=== PATIENT | female | born 1965 | race Caucasian/White ===

== ENCOUNTER 2019-03-15 18:39 | Emergency (ER) | payer SELFPAY ==
[2019-03-15 19:30] VITALS: BP 129/87; PULSE 111; RESP 18; TEMP 37.1; O2SAT 99; BMI 42.5
[2019-03-15 20:06] VITALS: BP 132/74; PULSE 84; RESP 16; TEMP 36.7; O2SAT 98
--- NOTE | 2019-03-15 20:27 | ED_ITS ---
Entered by Abena Springer, acting as scribe for Bonnie Branch MD, [facility] [place], 2019 18:39 HPI - General Adult General: Chief complaint: General Medical Stated complaint: peg tube issue Time Seen by Provider: 03/15/19 20:27 Source: patient Mode of arrival: wheelchair Limitations: no limitations History of Present Illness: HPI narrative: 53 yo Female presents to ED with complaint of feeding tube issues. Pt states that she has been in and out of the hospital since December because she has a stricture in her stomach. 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 Pt states that they put in a feeding tube the last time and this tube was put in at the hospital in [place], [place]. Pt states that she hasn't fed herself through the tube since this afternoon because it is leaking and getting everywhere. The PEG tube was placed 14 days ago. She was discharged from the hospital 2 days ago. The patient is traveling and will be going back to [place] tomorrow. complaint: Feeding tube issues Onset (ago): hour(s) Location: abdomen Radiation: non-radiation Severity scale (1-10): 9 Pain Consistency: constant Relieving factors: none Exacerbating factors: none Associated symptoms: Reports nausea; Deny chest pain, dyspnea, headache(s), rash, palpitations or vomiting Review of Systems General: Reports: 10 or more systems reviewed and unremarkable except in HPI and below Const: Denies: fever, chills or body aches Eyes: Denies: change in vision, blurry vision or blind spots ENMT: Denies: throat pain, enlarged tonsils, painful swallowing, hoarseness, mouth pain or swelling of lips/tongue Card: Denies: chest pain, palpitations, irregular heart rhythm, edema or swelling of feet/ankles Resp: Denies: shortness of breath, productive cough or non-productive cough GI: Reports: abdominal pain, nausea, diarrhea and other (feeding tube leakage); Denies: vomiting : Denies: flank pain, difficulty urinating, painful urination, urinary fr equency, urinary urgency or urinary hesitancy Musc: Denies: neck pain, back pain, extremity pain, extremity swelling or joint pain Skin/Breast: Denies: rash, itching or redness Neuro: Denies: headache, numbness in extremities or weakness in extremities Endo: Denies: excessive urination, excessive thirst or tired all the time PFSH ED 2 PFSH: Statuses (acute, chronic, etc) shown below reflect problem list status as previously entered and may not be historically accurate Social History Smoking and tobacco status: never smoked Physical Exam Const: COMMON NORMALS: no apparent distress, average body habitus, oriented x3, no limitations, healthy appearing, alert and well nourished HENMT: COMMON NORMALS: normocephalic, head/scalp atraumatic and moist oral mucous membranes HEAD & SCALP: normocephalic and atraumatic Eye: COMMON NORMALS: PERRL, EOMs intact bilaterally, conjunctivae normal and no scleral icterus CONJUNCTIVA: Yes conjunctivae normal PUPIL: Yes PERRL Neck/C-Spine: COMMON NORMALS: full ROM, supple, no meningeal signs, no JVD and no carotid bruits Chest: COMMONS NORMALS: inspection of chest normal and palpation of chest normal Resp: COMMON NORMALS: normal respiratory effort, no retractions, no use of accessory muscles, clear to auscultation bilaterally and percussion normal AUSCULTATION: clear to auscultation bilaterally PERCUSSION: percussion normal Cardio: COMMON NORMALS: no JVD, regular rate, regular rhythm, S1 normal heart sound, S2 normal heart sound, no gallops, no clicks, no murmurs, no rub and peripheral pulses 2+ throughout RATE: regular rate RHYTHM: regular rhythm HEART SOUNDS: S1 normal and S2 normal PERIPHERAL PULSES: pulses 2+ throughout GI: COMMON NORMALS: soft to palpation, no hepatosplenomegaly, no masses and no bruits PALPATION: Yes soft, Yes tender (Around the PEG tube site) and Yes no hepatosplenomegaly OTHER: PEG tube in situ. There is mild tenderness and warmth around the PEG tube site. Mild purulent drainage from the PEG tube site. : COMMON NORMALS: Yes no CVA tenderness BLADDER/KIDNEY EXAM: Yes no CVA tenderness Back/Pelvis: COMMON NORMALS: no CVA tenderness Extremity: COMMON NORMALS: normal to inspection, full ROM, normal capillary refill, no calf tenderness and no pedal edema Neuro: COMMON NORMALS: oriented x3 SENSORIUM/ORIENTATION: Yes alert MENINGEAL SIGNS: Yes no meningeal signs Skin: COMMON NORMALS: no rashes or lesions noted, no wounds, skin turgor normal, no jaundice, no petechiae and no mottling GENERAL SKIN EXAM: no rashes or lesions noted and turgor normal Course Consultations: Consultation #1: Dr. Champagne, general surgeon. Attempt to reinsert the PEG tube. If unsuccessful attempt to remove it. Have her call the office in the morning. Time: 22:45 Vital Signs: Vital signs: Vital Signs Temperature 98.4 F 03/15/19 21:30 Pulse Rate 74 03/15/19 21:30 Respiratory Rate 16 03/15/19 21:30 Blood Pressure 134/81 03/15/19 21:30 Pulse Oximetry 97 03/15/19 21:30 MDM - General Adult MDM Narrative: Medical decision making narrative: 53-year-old female patient with a longstanding gastric outlet obstruction. She says she has been dealing with this for at least a year. 2 weeks ago she had a PEG tube placed in [place] for tube feedings. Patient states that since the tube was placed she has had pain and swelling around the PEG tube site. She claims she complained to the physician who placed the PEG tube but was told that it was okay. CT scan done today shows the PEG tube is not in the stomach and she does have some cellulitis of her abdominal wall. Attempts to reinsert the PEG tube were unsuccessful and attempts to deflate and remove the PEG tube were also unsuccessful. When an attempt was made to deflate it food particles were draining into the port. A second physician attempted to deflate or reinsert the PEG tube and he was also unsuccessful. We believe the PEG tube is defective. The patient will like to be discharged as she is traveling back home tomorrow and states that she will go straight to the emergency department when she gets home. Because of the cellulitis of the abdominal wall and myositis she will be discharged home on oral antibiotics after a dose of intravenous antibiotics given here in the ED. The patient is advised to return for any concerns. Patient voiced understanding and is in agreement with the plan Lab Data: Labs: Lab Results 03/15/19 03/15/19 03/15/19 Range/Units 20:58 20:58 20:58 WBC 10.1 H (4.0-10.0) 10^3/ uL RBC 4.24 (4.1-5.3) 10^6/u L Hgb 12.1 (11.5-15.3) g/dL Hct 37.6 (37.0-47.0) % MCV 88.7 (81-99) fL MCH 28.5 (28.0-34.0) pg MCHC 32.2 (30.0-36.0) g/dL RDW 12.7 (12.1-15.1) % Plt Count 337 (130-400) 10^3/c mm MPV 9.9 (7.4-10.4) fL Neut % (Auto) 63.9 % Lymph % (Auto) 25.2 % Vilas % (Auto) 7.1 % Eos % (Auto) 3.1 % Baso % (Auto) 0.2 % Neut # (Auto) 6.5 (1.8-7.7) 10^3/u L Lymph # (Auto) 2.6 (0.8-4.8) 10^3/u L Vilas # (Auto) 0.7 (0.2-0.9) 10^3/u L Eos # (Auto) 0.3 (0.0-0.8) 10^3/u L Baso # (Auto) 0.0 (0.0-0.1) 10^3/u L Nucleated RBC % (a uto) 0 % Nucleated RBCs # 0.0 /100WBC Sodium 135 L (136-145) mmol/L Potassium 4.4 (3.5-5.1) mmol/L Chloride 99 (98-107) mmol/L Carbon Dioxide 26 (22-29) mmol/L Anion Gap 14.4 (5-19) BUN 14 (6-20) mg/dL Creatinine 0.8 (0.5-0.9) mg/dL GFR Calculation 74.5 L (90-130) mL/min Glucose 137 H (74-109) mg/dL Lactate 1.3 (0.5-2.2) mmol/L Calcium 10.4 (8.5-10.5) mg/dL Total Bilirubin 0.2 (0.15-1.2) mg/dL AST 13 (0-32) U/L ALT 14 (0-33) U/L Alkaline Phosphata se 120 H (35-105) IU/L Total Protein 7.0 (6.6-8.7) g/dL Albumin 3.8 (3.5-5.2) g/dL Globulin 3.2 (1.3-4.6) g/dL Imaging Data^: CT Abd/Pel: Radiologist's impression: [facility] [address] [place] [address] CT Scan Report Signed Patient: John Rodriguez #: [id number] : 1965Acct#:[id number] Age/Sex: 53 / FADM Date: 03/15/19 Loc: ERRoom/Bed: Attending Dr: Ordering Provider/Ordering MD: Bonnie Branch MD, [facility] [place] of Service: 03/15/19 Procedure(s): CT abdomen pelvis w con* [id number] Accession Number(s): [id number] Report Number: [id number] PROCEDURE INFORMATION: Exam: CT Abdomen And Pelvis With Contrast Exam date and time: 03/15/2019 9:56 PM Age: 53 years old Clinical indication: Abdominal tenderness; Prior surgery; Surgery type: Feeding tube, laproscopic, perforated ulcer; Additional info: Feeding tube leakage TECHNIQUE: Imaging protocol: Computed tomography of the abdomen and pelvis with intravenous contrast. Total DLP: 1977.73 mGy-cm Radiation optimization: All CT scans at this facility use at least one of these dose optimization techniques: automated exposure control; mA and/or kV adjustment per patient size (includes targeted exams where dose is matched to clinical indication); or iterative reconstruction. Contrast material: VISI 320; Contrast volume: 95 ml; Contrast route: IV; COMPARISON: No relevant prior studies available. FINDINGS: Tubes, catheters and devices: Peg tube catheter is abnormally located with retaining flange retracted out of the stomach and located the anterior abdominal wall, along the outer margin of the rectus muscle. Lungs: Mild atelectasis. Liver: Normal. No mass. Gallbladder and bile ducts: Normal. No calcified stones. No ductal dilation. Pancreas: Normal. No ductal dilation. Spleen: Normal. No splenomegaly. Adrenals: Normal. No mass. Kidneys and ureters: Normal. No hydronephrosis. Stomach and bowel: Postsurgical changes of the stomach with sutures. Appendix: No evidence of appendicitis. Intraperitoneal space: Unremarkable. No free air. No significant fluid collection. Vasculature: Infrarenal IVC filter. Lymph nodes: Unremarkable. No enlarged lymph nodes. Bladder: Unremarkable as visualized. Reproductive: Unremarkable as visualized. 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 Soft tissues: There is thickening of the left abdominus rectus muscle surrounding the PEG tube catheter. There is soft tissue edema and fat stranding with a few gas bubbles surrounding the catheter and extending along the left lateral abdominal wall. No organized fluid collection or abscess. CT/CT abdomen pelvis w con* [id number] IMPRESSION: 1. The PEG tube catheter has been pulled out of the stomach with the retaining flange located within the anterior abdominal wall. 2. Edema and cellulitis of the surrounding anterior and lateral left abdominal wall. 3. Thickening of the left abdominus rectus muscle consistent with myositis. Radiation Dose CTDIVOL = (mGy): DLP = 1977.73 (mGy-cm) Dictated By:Hany Lyons Signed By:Hany LyonsSitania Date/Time:03/15/192246 DD/ 45 Discharge Plan Discharge Patient Disposition: Home, Self-Care Clinical Impression: Malfunction of percutaneous endoscopic gastrostomy (PEG) tube, Leaking percutaneous endoscopic gastrostomy (PEG) tube, Abdominal wall cellulitis Myositis Qualifiers: Myositis type: infective Myositis location: other site Qualified Code(s): M60.08 - Infective myositis, other site Condition: Stable Prescriptions: New amoxicillin-pot clavulanate [Augmentin] 250-62.5 mg/5 mL suspension for reconstitution 10 ml PO Q8H Qty: 210 RF: 0 Discharge Orders: Discharge Order (Routine); Ordered 03/15/19 Ordered By: Bonnie Branch Patient Instructions: Cellulitis (ED), How to Use and Care for Your PEG Tube (ED) Activity Restrictions/Additional Instructions: Return for any new or worsening symptoms. Do not use your feeding tube until you are evaluated by your doctor. When you go home go straight to the emergency department to be evaluated. Take the antibiotic as prescribed. Until you are evaluated I want you to consume a liquid diet including Pedialyte, Gatorade, and similar. Coding Level of Care Code ED Vp Customer Service for Chg Fwd Exam Problem Focused The documentation recorded by the Gian knowles Carmen, accurately reflects the service I personally performed and the decisions made by me, Bonnie Branch MD, [facility] [place] Mar 15, 2019 18:39
--- NOTE | 2019-03-15 20:38 | CTR_ITS ---
PROCEDURE INFORMATION: Exam: CT Abdomen And Pelvis With Contrast Exam date and time: 03/15/2019 9:56 PM Age: 53 years old Clinical indication: Abdominal tenderness; Prior surgery; Surgery type: Feeding tube, laproscopic, perforated ulcer; Additional info: Feeding tube leakage TECHNIQUE: Imaging protocol: Computed tomography of the abdomen and pelvis with intravenous contrast. Total DLP: 1977.73 mGy-cm Radiation optimization: All CT scans at this facility use at least one of these dose optimization techniques: automated exposure control; mA and/or kV adjustment per patient size (includes targeted exams where dose is matched to clinical indication); or iterative reconstruction. Contrast material: VISI 320; Contrast volume: 95 ml; Contrast route: IV; COMPARISON: No relevant prior studies available. FINDINGS: Tubes, catheters and devices: Peg tube catheter is abnormally located with retaining flange retracted out of the stomach and located the anterior abdominal wall, along the outer margin of the rectus muscle. Lungs: Mild atelectasis. Liver: Normal. No mass. Gallbladder and bile ducts: Normal. No calcified stones. No ductal dilation. Pancreas: Normal. No ductal dilation. Spleen: Normal. No splenomegaly. Adrenals: Normal. No mass. Kidneys and ureters: Normal. No hydronephrosis. Stomach and bowel: Postsurgical changes of the stomach with sutures. Appendix: No evidence of appendicitis. Intraperitoneal space: Unremarkable. No free air. No significant fluid collection. Vasculature: Infrarenal IVC filter. Lymph nodes: Unremarkable. No enlarged lymph nodes. Bladder: Unremarkable as visualized. Reproductive: Unremarkable as visualized. 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 Soft tissues: There is thickening of the left abdominus rectus muscle surrounding the PEG tube catheter. There is soft tissue edema and fat stranding with a few gas bubbles surrounding the catheter and extending along the left lateral abdominal wall. No organized fluid collection or abscess. CT/CT abdomen pelvis w con* [id number] IMPRESSION: 1. The PEG tube catheter has been pulled out of the stomach with the retaining flange located within the anterior abdominal wall. 2. Edema and cellulitis of the surrounding anterior and lateral left abdominal wall. 3. Thickening of the left abdominus rectus muscle consistent with myositis. Radiation Dose CTDIVOL = (mGy): DLP = 1977.73 (mGy-cm)
[2019-03-15 21:14] LABS: Basophils % 0.2 %; Eosinophils # 0.3 10^3/uL (0.0-0.8); Eosinophils % 3.1 %; Hematocrit 37.6 % (37.0-47.0); Hemoglobin 12.1 g/dL (11.5-15.3); Lymphocytes # 2.6 10^3/uL (0.8-4.8); Lymphocytes % 25.2 %; Mean Corpuscular HGB Conc 32.2 g/dL (30.0-36.0); Mean Corpuscular Hemoglobin 28.5 pg (28.0-34.0); Mean Corpuscular Volume 88.7 fL (81-99); Mean Platelet Volume 9.9 fL (7.4-10.4); Monocytes # 0.7 10^3/uL (0.2-0.9); Monocytes % 7.1 %; Neutrophils # 6.5 10^3/uL (1.8-7.7); Neutrophils % 63.9 %; Nucleated Red Blood Cells % 0 %; Platelet Count 337 10^3/cmm (130-400); Red Blood Count 4.24 10^6/uL (4.1-5.3); Red Cell Distribution Width 12.7 % (12.1-15.1); White Blood Count 10.1 10^3/uL (4.0-10.0)
[2019-03-15 21:29] LABS: Lactate (Lactic Acid level) 1.3 mmol/L (0.5-2.2)
[2019-03-15 21:30] VITALS: BP 134/81; PULSE 74; RESP 16; TEMP 36.9; O2SAT 97
[2019-03-15 21:44] LABS: Alanine Aminotransferase 14 U/L (0-33); Albumin Level 3.8 g/dL (3.5-5.2); Alkaline Phosphatase 120 IU/L (35-105); Anion Gap 14.4 (5-19); Aspartate Amino Transferase 13 U/L (0-32); Blood Urea Nitrogen 14 mg/dL (6-20); Calcium 10.4 mg/dL (8.5-10.5); Carbon Dioxide 26 mmol/L (22-29); Chloride 99 mmol/L (98-107); Globulin 3.2 g/dL (1.3-4.6); Glomerular Filtration Rate 74.5 mL/min (90-130); Glucose 137 mg/dL (74-109); Potassium 4.4 mmol/L (3.5-5.1); Sodium 135 mmol/L (136-145); Total Bilirubin 0.2 mg/dL (0.15-1.2)
[2019-03-15] MEDS: iodixanol 320 mg/mL 100mL Btl 95 ML IV (22:06)
[2019-03-15] MEDS: cefTRIAXone 1,000 MG in sodium chloride 0.9% (plus) 50 ML 100 MG IV (23:12)
[2019-03-15 23:55] VITALS: BP 128/71; PULSE 84; RESP 16; TEMP 37.1; O2SAT 100
== END 2019-03-15 23:58 | disposition home or self-care (01) ==
PROVIDERS: Emergency Provider Family Medicine
DX: K94.23 Gastrostomy malfunction (principal); L03.311 Cellulitis of abdominal wall; M60.08 Infective myositis, other site
CPT/HCPCS: 36415; 74177; 80053; 83605; 85025; 96365; 99282; 99284; J0696; Q9967